=== PATIENT | female | born 1945 | race Hispanic/Latino ===

== ENCOUNTER → 2018-07-13 | Day surgery (SDC) | payer MEDICARE ==
[~2018-07-13] MED LIST: ALENDRONATE SOD70 MG PO; ATORVASTATIN CA20 MG PO; LEXAPRO10 MG PO; LOSARTAN POTASS25 MG PO; MIDAZOLAM HCL 2 MG/2 ML VIAL ONE; OR PHACO EYE KIT ONE; PREOP PHACO EYE KIT ONE
[2018-07-13 12:30] VITALS: BP 117/73
== END | disposition home or self-care (01) ==
LOC: OR 09:09
PROVIDERS: ATTEND Ophthalmology
DX: H25.12 Age-related nuclear cataract, left eye (principal); I10 Essential (primary) hypertension; E78.00 Pure hypercholesterolemia, unspecified; E55.9 Vitamin D deficiency, unspecified; R79.89 Other specified abnormal findings of blood chemistry; M81.0 Age-related osteoporosis without current pathological fracture; K21.9 Gastro-esophageal reflux disease without esophagitis; Z79.82 Long term (current) use of aspirin
CPT/HCPCS: 66984; J2250; V2632

== ENCOUNTER → 2018-08-03 | Day surgery (SDC) | payer MEDICARE ==
[~2018-08-03] MED LIST changes: -MIDAZOLAM HCL 2 MG/2 ML VIAL ONE
[2018-08-03 12:50] VITALS: BP 140/74
== END | disposition home or self-care (01) ==
LOC: OR 09:49
PROVIDERS: ATTEND Ophthalmology
DX: H25.11 Age-related nuclear cataract, right eye (principal); I10 Essential (primary) hypertension; F32.9 Major depressive disorder, single episode, unspecified
CPT/HCPCS: V2632

== ENCOUNTER 2022-08-05 18:50 | Emergency (ER) | payer MEDICARE, OTHER ==
[~2022-08-05] VITALS: Ht 160 cm; Wt 73.9 kg
[~2022-08-05 18:50] MED LIST changes: -OR PHACO EYE KIT ONE; -PREOP PHACO EYE KIT ONE
[2022-08-05] MEDS ORDERED: ACETAMINOPHEN-1 EAC4 PO (20:45)
[2022-08-05] MEDS ORDERED: ACETAMINOPHEN500 MG PO (20:45)
[2022-08-05] MEDS ORDERED: IBUPROFEN200 MG PO (20:45)
== END 2022-08-05 21:38 | disposition home or self-care (01) ==
LOC: FSED 19:02
DX: S82.841A Displaced bimalleolar fracture of right lower leg, initial encounter for closed fracture (principal); W10.8XXA Fall (on) (from) other stairs and steps, initial encounter; Y93.01 Activity, walking, marching and hiking; Y92.89 Other specified places as the place of occurrence of the external cause; I10 Essential (primary) hypertension
CPT/HCPCS: 99283